=== PATIENT | male | born 1940 | race Caucasian/White ===

== ENCOUNTER → 2018-02-10 13:30 | Outpatient (CLI) | payer MEDICARE, OTHER, SELFPAY ==
--- NOTE | 2018-02-10 | DI.MRI.S_ITS ---
PROCEDURE: MR LUMBAR SPINE WO CON INDICATIONS: SPINAL STENOSIS OF LUMBAR REGION TECHNIQUE: Noncontrast sagittal T1 spin echo and T2 fast echo, sagittal STIR, axial T1 and T2 fast spin echo through the lumbar spine. In cases with scoliosis, additional coronal T2 fast spin echo may be performed. COMPARISON: [facility], MR, L-SPINE WITHOUT CONTRAST, 02/04/2015, 11:33. FINDINGS: Image quality: Excellent. Alignment and Curvature: Interval development of grade 1 anterolisthesis of L4 on L5. Trace retrolisthesis of L5 on S1 as before Bone Marrow: Marrow is of normal overall signal. There are Schmorl's nodes present involving the inferior endplate of L2 and the superior endplate of L3 which are new since the prior study. There is associated marrow edema. Additional small Schmorl's node involving superior endplate of L4 with minimal associated marrow edema No acute vertebral body compression fractures. Spinal Cord: Conus medullaris terminates at the T12-L1 level. Visualized cord demonstrates normal signal and size. Paraspinous Soft Tissues: No paravertebral masses. Presumed bilateral renal cysts although technically indeterminate L1-L2: Mild broad-based posterior disc bulge and bilateral facet disease. Mild central canal narrowing. There is mild bilateral symmetric partial effacement of the lateral recesses. Mild left and no right foraminal stenoses. This is increased on the left. L2-L3: Broad-based posterior disc bulge and bilateral facet disease with ligamentum flavum hypertrophy. There is partial effacement of the lateral recesses, although left greater than right. The descending left L3 nerve root is not well-seen raising the possibility of impingement. This appears progressed since prior study however slightly motion degraded therefore please correlate clinically to exam findings. No right and mild left foraminal narrowing, no interval change L3-L4: Broad-based posterior disc bulge and bilateral facet disease with ligamentum flavum hypertrophy. There is minimal dorsal epidural lipomatosis. Severe central canal narrowing. Near complete effacement of the lateral recesses bilaterally although right greater than left. This level is also motion obscured. Moderate left and mild right foraminal narrowing, grossly unchanged L4-L5: Broad-based posterior disc bulge bilateral facet disease. There is ligamentum flavum hypertrophy. Mild central canal narrowing. Severe right and mild left foraminal stenoses. This appears progressed on the right L5-S1: Posterior annular fissure, broad-based posterior disc bulge and bilateral facet arthropathy. No canal stenosis identified. Mild left and moderate right foraminal narrowing. IMPRESSION: Overall, slight interval progression in multilevel disc degeneration and facet arthropathy as above, in particular progressive narrowing at the left L1-L2 neuroforamen, left L2-L3 subarticular narrowing, right L4-L5 foraminal narrowing and grade 1 anterolisthesis of L4 on L5. Interval development of multilevel Schmorl's nodes. Remainder of the examination unchanged as above. Dictated by: Gerard Givens M.D. on 02/10/2018 at 16:38 Approved by: Gerard Givens M.D. on 02/10/2018 at 16:49
--- NOTE | 2018-02-10 | DI.MRI.S_ITS ---
PROCEDURE: MR THORACIC SPINE WO CON INDICATIONS: SPINAL STENOSIS OF LUMBAR REGION TECHNIQUE: Noncontrast sagittal T1 spine echo and T2 fast spin echo, sagittal STIR, axial T1 and T2 fast spin echo through the thoracic spine. COMPARISON: [facility], US, RENAL COMPLETE, 12/24/2015, 14:54. [facility], CT, ABDOMEN/PELVIS WITH CONTRAST, 11/07/2015, 21:39. FINDINGS: Image quality: Excellent. Alignment and Curvature: There is normal bony alignment. Bone Marrow: Marrow is of normal overall signal. No acute vertebral body compression fractures. Spinal Cord: Visualized spinal cord is normal in size and signal. Paraspinous Soft Tissues: No paravertebral masses. Partially visualized bilateral hydronephrosis versus parapelvic cysts. Miscellaneous: On axial images, central canal and foramina appear widely patent at all scanned levels. IMPRESSION: No canal or foraminal stenosis. Prominent bilateral parapelvic cysts versus hydronephrosis. Visually clinically and if necessary, dedicated renal ultrasound could be performed for further evaluation. Dictated by: Gerard Givens M.D. on 02/10/2018 at 14:59 Approved by: Gerard Givens M.D. on 02/10/2018 at 15:06
== END ==
PROVIDERS: PCP Family Medicine; Visit Provider Family Medicine
DX: M48.061 Spinal stenosis, lumbar region without neurogenic claudication (principal); M51.36 Other intervertebral disc degeneration, lumbar region; M51.37 Other intervertebral disc degeneration, lumbosacral region; M47.816 Spondylosis without myelopathy or radiculopathy, lumbar region; M48.07 Spinal stenosis, lumbosacral region; M47.817 Spondylosis without myelopathy or radiculopathy, lumbosacral region; M51.46 Schmorl's nodes, lumbar region
CPT/HCPCS: 72146; 72148

== ENCOUNTER → 2018-03-16 11:37 | Outpatient (CLI) | payer MEDICARE, OTHER, SELFPAY ==
--- NOTE | 2018-03-16 | DI.RAD.S_ITS ---
PROCEDURE: XR SHOULDER RT MIN 2V INDICATIONS: CHRONIC RT SHOULDER PAIN TECHNIQUE: 3 views of the shoulder were acquired. COMPARISON: [facility], CR, XR HUMERUS RT 2V, 03/16/2018, 11:48. FINDINGS: Bones: No fractures or dislocations. No suspicious bony lesions. Visualized ribs appear intact. There is question of a small Hill-Sachs fracture deformity, although this is probably artifact related to difficulty with patient positioning given the appearance of prior study dated 03/16/18. Moderate glenohumeral and acromioclavicular joint degeneration. Soft tissues: No suspicious soft tissue calcifications. IMPRESSION: Moderate right shoulder degeneration. Dictated by: Gerard Givens M.D. on 03/16/2018 at 12:46 Approved by: Gerard Givens M.D. on 03/16/2018 at 12:49
--- NOTE | 2018-03-16 | DI.US.S_ITS ---
PROCEDURE: US RENAL COMPLETE INDICATIONS: PARAPELVIC RENAL CYST VS HYDRONEPHROSIS TECHNIQUE: Real-time scanning was performed of the kidneys and bladder, with image documentation. COMPARISON: [facility], US, RENAL COMPLETE, 12/24/2015, 14:54. [facility], CT, ABDOMEN/PELVIS WITH CONTRAST, 11/07/2015, 21:39. FINDINGS: Kidneys: Kidneys are normal in size. Right kidney measures 12.0 cm long; left kidney measures 13.4 cm long. Right renal cortical thickness is 1.6 cm; left renal cortical thickness is 1.8 cm. Renal cortical echotexture is normal. Moderate bilateral hydronephrosis. 2 cysts are seen involving the right kidney largest measuring 3.1 x 2.9 x 2.6 cm. Bladder: Pre-void bladder volume is 195 mL. Post-void residual is 22 mL. Pre-void images demonstrate no intraluminal masses or stones. On pre-void images, bilateral ureteral jets are noted with color Doppler interrogation. (Of note, ureteral jets may not be detectable in up to 25% of cases due to insufficient differences in specific gravity between ureteral and bladder urine). Miscellaneous: No free pelvic fluid. IMPRESSION: 1. Moderate bilateral hydronephrosis and there are multiple left renal cysts largest measuring 3.1 cm. Dictated by: Ti LUCAS Interpreted: Cristal Willett MD on 03/16/2018 at 13:12 Approved by: Cristal Willett M.D. on 03/16/2018 at 15:39
--- NOTE | 2018-03-16 | DI.RAD.S_ITS ---
PROCEDURE: XR HUMERUS RT 2V INDICATIONS: CHRONIC RT SHOULDER PAIN TECHNIQUE: 2 views of the humerus were acquired. COMPARISON: None. FINDINGS: Bones: No fractures or dislocations. No suspicious bony lesions. Soft tissues: No suspicious soft tissue calcifications. Possible right shoulder calcific tendinitis. There is moderate right shoulder joint degeneration IMPRESSION: Unremarkable appearance of the humerus. Right shoulder joint degeneration and possible scant calcific tendinitis Dictated by: Gerard Givens M.D. on 03/16/2018 at 14:03 Approved by: Gerard Givens M.D. on 03/16/2018 at 14:04
== END ==
PROVIDERS: PCP Family Medicine; Visit Provider Family Medicine
DX: C44.622 Squamous cell carcinoma of skin of right upper limb, including shoulder (principal); M25.511 Pain in right shoulder; M19.011 Primary osteoarthritis, right shoulder; G89.29 Other chronic pain; N13.30 Unspecified hydronephrosis; N28.1 Cyst of kidney, acquired
CPT/HCPCS: 73030; 73060; 76770

== ENCOUNTER 2018-03-28 10:51 | Emergency (ER) | payer MEDICARE, OTHER, SELFPAY ==
[2018-03-28 11:30] VITALS: BP 135/78; PULSE 78; RESP 16; TEMP 36.5; O2SAT 98; BMI 27.3
== END 2018-03-28 12:25 | disposition left against medical advice (07) ==
LOC: ED 10:52
PROVIDERS: PCP Family Medicine
DX: S80.12XA Contusion of left lower leg, initial encounter (principal)
CPT/HCPCS: 99281; 99282

== ENCOUNTER → 2020-12-23 14:32 | Outpatient (CLI) | payer MEDICARE, OTHER, SELFPAY ==
[2020-12-23 20:13] LABS: Add Manual Diff / Slide Review NO; Basophils Absolute Auto 100 /uL (0-100); Basophils Percent Auto 0.8 % (0-2); Eosinophils Absolute Auto 100 /uL (0-450); Eosinophils Percent Auto 1.6 % (2-4); Lymphocytes Absolute Auto 1900 /uL (1100-4500); Lymphocytes Percent Auto 22.3 % (25-40); Mean Corpuscular HGB Conc 32.7 % (30-36); Mean Corpuscular Volume 94.8 fL (80-100); Monocytes Absolute Auto 700 /uL (0-900); Monocytes Percent Auto 8.6 % (3-14); Neutrophils Absolute Auto 5600 /uL (1500-7000); Neutrophils Percent Auto 66.7 % (50-75); Platelet Count 275 X10^3/uL (150-400); Red Blood Cell Count 5.17 X10^6/uL (4.5-5.9); Red Cell Distribution Width 13.3 % (11.6-14.8); White Blood Cell Count 8.4 X10^3/uL (4.5-11.0)
[2020-12-23 20:18] LABS: Alanine Aminotransferase 21 IU/L (<50); Albumin Globulin Ratio 1.3 (1.0-2.8); Alkaline Phosphatase 66 U/L (38-126); Aspartate Aminotransferase 27 IU/L (17-59); BUN Creatinine Ratio 24.1 (6-22); Bilirubin Total 2.3 mg/dL (0.2-1.3); Blood Urea Nitrogen 20 mg/dL (9-20); Calcium 9.2 mg/dL (8.4-10.2); Carbon Dioxide 26 mmol/L (22-32); Chloride 105 mmol/L (98-107); Cholesterol 164 mg/dL (140-199); Estimated Glomerular Filt Rate > 60.0 mL/min (>60); Glucose 100 mg/dL (80-110); HDL Cholesterol 73 mg/dL (40-60); HEMOLYSIS < 15 (0-50); LDL Cholesterol Calculated 79 mg/dL (<100); Potassium 4.6 mmol/L (3.4-5.1); Sodium 138 mmol/L (137-145); Triglycerides 58 mg/dL (35-150)
== END ==
PROVIDERS: PCP Family Medicine; Visit Provider Family Medicine
DX: I10 Essential (primary) hypertension (principal); E78.5 Hyperlipidemia, unspecified
CPT/HCPCS: 80053; 80061; 85025

== ENCOUNTER → 2021-10-16 10:13 | Outpatient (CLI) | payer MEDICARE, OTHER, SELFPAY ==
[2021-10-16 18:52] LABS: Add Manual Diff / Slide Review NO; Basophils Absolute Auto 0 /uL (0-100); Basophils Percent Auto 0.9 % (0-2); Eosinophils Absolute Auto 100 /uL (0-450); Eosinophils Percent Auto 2.3 % (2-4); Hematocrit 44.4 % (41-53); Hemoglobin 15.1 g/dL (13.5-17.5); Lymphocytes Absolute Auto 1600 /uL (1100-4500); Lymphocytes Percent Auto 29.1 % (25-40); Mean Corpuscular Hemoglobin 31.9 PG (26-34); Mean Corpuscular Volume 93.8 fL (80-100); Monocytes Absolute Auto 600 /uL (0-900); Monocytes Percent Auto 10.4 % (3-14); Neutrophils Absolute Auto 3100 /uL (1500-7000); Neutrophils Percent Auto 57.3 % (50-75); Platelet Count 260 X10^3/uL (150-400); Red Blood Cell Count 4.74 X10^6/uL (4.5-5.9); Red Cell Distribution Width 12.8 % (11.6-14.8); White Blood Cell Count 5.4 X10^3/uL (4.5-11.0)
[2021-10-16 18:56] LABS: Alanine Aminotransferase 19 IU/L (<50); Albumin 3.8 g/dL (3.5-5.0); Albumin Globulin Ratio 1.3 (1.0-2.8); Alkaline Phosphatase 66 U/L (38-126); Aspartate Aminotransferase 31 IU/L (17-59); BUN Creatinine Ratio 21.8 (6-22); Blood Urea Nitrogen 19 mg/dL (9-20); Calcium 8.8 mg/dL (8.4-10.2); Carbon Dioxide 27 mmol/L (22-32); Chloride 101 mmol/L (98-107); Cholesterol 153 mg/dL (140-199); Estimated Glomerular Filt Rate > 60 mL/min (>60); Globulin 2.9 g/dL (1.7-4.1); Glucose 98 mg/dL (80-110); HDL Cholesterol 64 mg/dL (40-60); HEMOLYSIS 26 (0-50); LDL Cholesterol Calculated 78 mg/dL (<100); Potassium 4.5 mmol/L (3.4-5.1); Sodium 134 mmol/L (137-145); Total Protein 6.7 g/dL (6.3-8.2); Triglycerides 55 mg/dL (35-150)
[2021-10-16 19:27] LABS: Prostate Specific Antigen Scrn 1.19 ng/mL (0.1-4.0)
[2021-10-16 19:40] LABS: TSH w/ Reflex to FT4 1.32 uIU/mL (0.47-4.68)
[2021-10-16 19:46] LABS: Vitamin B12 380 pg/mL (239-931)
== END ==
PROVIDERS: PCP Family Medicine; Visit Provider Family Medicine
DX: E78.5 Hyperlipidemia, unspecified (principal); Z12.5 Encounter for screening for malignant neoplasm of prostate; K57.90 Diverticulosis of intestine, part unspecified, without perforation or abscess without bleeding; H93.19 Tinnitus, unspecified ear; I10 Essential (primary) hypertension; K59.00 Constipation, unspecified; N40.1 Benign prostatic hyperplasia with lower urinary tract symptoms; R35.0 Frequency of micturition; R35.1 Nocturia; R42 Dizziness and giddiness; R53.83 Other fatigue; R63.4 Abnormal weight loss
CPT/HCPCS: 80053; 80061; 82607; 84443; 85025; G0103

== ENCOUNTER → 2021-11-25 11:57 | Outpatient (CLI) | payer MEDICARE, OTHER, SELFPAY ==
[2021-11-25 21:18] LABS: D Dimer 393 ng/mL (<230)
== END ==
PROVIDERS: PCP Family Medicine; Visit Provider Family Medicine
DX: M79.89 Other specified soft tissue disorders (principal)
CPT/HCPCS: 85379

== ENCOUNTER → 2021-11-28 12:59 | Outpatient (CLI) | payer MEDICARE, OTHER, SELFPAY ==
--- NOTE | 2021-11-28 13:01 | DI.US.S_ITS ---
PROCEDURE: US PERIPH VENOUS LOW EXTREM LT INDICATIONS: Asymmetric left-sided calf swelling with positive D-dimer TECHNIQUE: Real-time imaging, as well as color and pulse Doppler interrogation, were performed of the lower extremity deep veins from the inguinal ligament to the popliteal fossa. COMPARISON: None. FINDINGS: The common femoral, femoral and popliteal veins are normally compressible, and free of intraluminal thrombus. Color and pulse Doppler demonstrate normal phasic intraluminal flow. There is normal augmentation response to distal compression maneuver. IMPRESSION: Negative for deep venous thrombosis. Dictated by: Jeff Arias M.D. on 11/28/2021 at 12:29 Approved by: Jeff Arias M.D. on 11/28/2021 at 12:30
== END ==
PROVIDERS: PCP Family Medicine; Referring Provider Family Medicine; Visit Provider Family Medicine
DX: M79.89 Other specified soft tissue disorders (principal); R79.1 Abnormal coagulation profile
CPT/HCPCS: 93971

== ENCOUNTER → 2022-08-28 15:12 | Outpatient (CLI) | payer MEDICARE, OTHER, SELFPAY ==
--- NOTE | 2022-08-28 15:14 | DI.MRI.S_ITS ---
PROCEDURE: MR LUMBAR SPINE WO CON INDICATIONS: Pre-Operative TECHNIQUE: Noncontrast sagittal T1 spin echo and T2 fast echo, sagittal STIR, and T2 fast spin echo through the lumbar spine. In cases with scoliosis, additional coronal T2 fast spin echo may be performed. COMPARISON: [facility], MR, MR LUMBAR SPINE WO CON, 02/10/2018, 14:28. FINDINGS: Image quality: Excellent. Alignment and Curvature: Trace L4 on L5 anterolisthesis is present, slightly increased in extent when compared with the MRI dated February 10, 2018. Bone Marrow: There is multilevel reactive endplate changes most severe at L3-4 which demonstrate Modic type I changes. This is markedly increased in extent when compared with the study from February 10, 2018. Spinal Cord: Conus medullaris terminates at the L1 level. Visualized cord demonstrates normal signal and size. Paraspinous Soft Tissues: No paravertebral masses. There are multiple T2 hyperintense cysts within the renal pelves suggesting the presence of bilateral pararenal cysts. T12-L1: No canal stenosis. No foraminal stenosis. L1-L2: Mild disc desiccation and height loss. Broad-based disc bulge. Moderate facet ligamentum flavum hypertrophy. No canal stenosis. Mild right and moderate left foraminal stenosis. L2-L3: Moderate disc desiccation and height loss. Vacuum disc phenomenon. Large broad-based disc bulge. Severe facet and ligamentum flavum hypertrophy. Mild canal stenosis. Mild bilateral neural foraminal stenosis. L3-L4: Severe disc desiccation and height loss. Broad-based disc bulge. Severe facet and ligamentum flavum hypertrophy. Severe canal stenosis. This has increased in severity when compared with the 2018 study. Moderate to severe bilateral foraminal narrowing increased from the prior study. L4-L5: Severe disc desiccation and height loss. Trace anterolisthesis. Severe facet and ligamentum flavum hypertrophy. No canal stenosis. Moderate right and mild left foraminal stenosis. These findings are unchanged. L5-S1: Severe disc desiccation and height loss. Broad-based disc bulge. Mild facet sclerosis. Mild bilateral foraminal stenosis. No canal stenosis. IMPRESSION: 1. Marked increase in reactive endplate changes and degenerative disc disease throughout the lumbar spine when compared with the study dated February 10, 2018. 2. Multilevel broad-based disc bulges and facet and ligamentum flavum hypertrophy with resultant mild canal stenosis at L2-3 and severe canal stenosis at L3-4 which is increased from the prior study. 3. Moderate left foraminal stenosis at L1-2, moderate right foraminal stenosis at L4-5, and moderate to severe bilateral foraminal stenosis at L3-4 which is increased in extent from the prior study. Dictated by: Maria Elena Silverman M.D. on 08/28/2022 at 16:42 Approved by: Maria Elena Silverman M.D. on 08/28/2022 at 16:47
== END ==
PROVIDERS: PCP Family Medicine; Referring Provider Family Medicine; Visit Provider Family Medicine
DX: M48.061 Spinal stenosis, lumbar region without neurogenic claudication (principal); M51.36 Other intervertebral disc degeneration, lumbar region
CPT/HCPCS: 72148

== ENCOUNTER → 2022-12-24 10:45 | Outpatient (CLI) | payer MEDICARE, OTHER, SELFPAY ==
--- NOTE | 2022-12-24 | DI.MRI.S_ITS ---
PROCEDURE: MR LUMBAR SPINE WO CON INDICATIONS: Spinal stenosis, lumbar region TECHNIQUE: Noncontrast sagittal T1 spin echo and T2 fast echo, sagittal STIR, and T2 fast spin echo through the lumbar spine. In cases with scoliosis, additional coronal T2 fast spin echo may be performed. COMPARISON: [facility], MR, MR LUMBAR SPINE WO CON, 08/28/2022, 15:17. FINDINGS: Image quality: Excellent. Alignment and Curvature: Grade 1 anterior spondylolisthesis at L4-5 Bone Marrow: Modic type 1 edematous endplate changes noted at L3-4. Additional multilevel chronic endplate changes noted throughout the lumbar spine Spinal Cord: Conus medullaris terminates at the L1 level. Visualized cord demonstrates normal signal and size. Paraspinous Soft Tissues: Bilateral renal peripelvic cysts noted. Evidence of prior laminotomy at L3-4 noted in the posterior paraspinal soft tissues. No instrumentation. T12-L1: Normal appearance. L1-L2: Disc space narrowing and posterior disc bulge present without central stenosis. Moderate left and mild right foraminal stenosis L2-L3: Disc space narrowing and circumferential disc bulge with hypertrophic facet joints results in mild central stenosis. Severe left and mild right foraminal stenosis L3-L4: Disc space narrowing and circumferential disc bulge with hypertrophic facet joints results in mild central stenosis, much improved from the prior. Moderate bilateral foraminal stenosis. L4-L5: Disc space narrowing with grade 1 anterior spondylolisthesis hypertrophic facet joints and disc bulge results in [id number] central stenosis. Mild bilateral foraminal stenosis L5-S1: Disc space narrowing with circumferential disc bulge and hypertrophic facet joints. Moderate bilateral foraminal stenosis IMPRESSION: No evidence of surgical complication status post L3-4 laminotomies. Mid L3-4 mild residual central stenosis is much improved from the prior. Multilevel degenerative disc disease and arthropathy results in stable multilevel foraminal stenosis as above Approved by: Noe Enriquez M.D. on 12/24/2022 at 17:39
[2022-12-24 11:43] LABS: Alanine Aminotransferase 18 IU/L (<50); Albumin 3.8 g/dL (3.5-5.0); Albumin Globulin Ratio 1.2 (1.0-2.8); Alkaline Phosphatase 73 U/L (38-126); Aspartate Aminotransferase 23 IU/L (17-59); BUN Creatinine Ratio 28.6 (6-22); Bilirubin Total 1.3 mg/dL (0.2-1.3); Blood Urea Nitrogen 24 mg/dL (9-20); Calcium 8.9 mg/dL (8.4-10.2); Carbon Dioxide 26 mmol/L (22-32); Chloride 107 mmol/L (98-107); Estimated Glomerular Filt Rate > 60 mL/min (>60); Globulin 3.1 g/dL (1.7-4.1); Glucose 83 mg/dL (80-110); HEMOLYSIS < 15 (0-50); Potassium 4.7 mmol/L (3.4-5.1); Sodium 138 mmol/L (137-145); Total Protein 6.9 g/dL (6.3-8.2)
== END ==
PROVIDERS: PCP Family Medicine; Referring Provider Nurse Practitioner; Visit Provider Nurse Practitioner
DX: M48.062 Spinal stenosis, lumbar region with neurogenic claudication (principal); M48.07 Spinal stenosis, lumbosacral region; M51.36 Other intervertebral disc degeneration, lumbar region; M51.37 Other intervertebral disc degeneration, lumbosacral region; M47.816 Spondylosis without myelopathy or radiculopathy, lumbar region; M47.817 Spondylosis without myelopathy or radiculopathy, lumbosacral region; I10 Essential (primary) hypertension; R17 Unspecified jaundice
CPT/HCPCS: 36415; 72148; 80053

== ENCOUNTER → 2024-03-02 09:55 | Outpatient (CLI) | payer MEDICARE, OTHER, SELFPAY ==
[2024-03-02 19:33] LABS: Add Manual Diff / Slide Review NO; Basophils Absolute Auto 0 /uL (0-100); Basophils Percent Auto 0.7 % (0-2); Eosinophils Absolute Auto 200 /uL (0-450); Eosinophils Percent Auto 2.4 % (2-4); Hematocrit 44.6 % (41-53); Hemoglobin 14.4 g/dL (13.5-17.5); Lymphocytes Absolute Auto 2100 /uL (1100-4500); Lymphocytes Percent Auto 31.7 % (25-40); Mean Corpuscular HGB Conc 32.3 % (30-36); Mean Corpuscular Hemoglobin 27.9 PG (26-34); Mean Corpuscular Volume 86.3 fL (80-100); Monocytes Absolute Auto 600 /uL (0-900); Monocytes Percent Auto 9.3 % (3-14); Neutrophils Absolute Auto 3600 /uL (1500-7000); Neutrophils Percent Auto 55.9 % (50-75); Platelet Count 273 X10^3/uL (150-400); Red Blood Cell Count 5.17 X10^6/uL (4.5-5.9); Red Cell Distribution Width 16.1 % (11.6-14.8); White Blood Cell Count 6.5 X10^3/uL (4.5-11.0)
[2024-03-02 19:48] LABS: BUN Creatinine Ratio 21.6 (6-22); Blood Urea Nitrogen 21 mg/dL (9-20); Calcium 9.5 mg/dL (8.4-10.2); Carbon Dioxide 24 mmol/L (22-32); Chloride 105 mmol/L (98-107); Cholesterol 143 mg/dL (140-199); Estimated Glomerular Filt Rate > 60 mL/min (>60); Glucose 104 mg/dL (80-110); HDL Cholesterol 59 mg/dL (40-60); HEMOLYSIS 19 (0-50); LDL Cholesterol Calculated 72 mg/dL (<100); Potassium 4.7 mmol/L (3.4-5.1); Sodium 136 mmol/L (137-145); Triglycerides 59 mg/dL (35-150)
[2024-03-02 20:17] LABS: Prostate Specific Antigen Scrn 0.646 ng/mL (0.1-4.0)
[2024-03-02 20:36] LABS: Vitamin B12 915 pg/mL (239-931)
== END ==
PROVIDERS: PCP Family Medicine; Visit Provider Family Medicine
DX: E87.1 Hypo-osmolality and hyponatremia (principal); E78.5 Hyperlipidemia, unspecified; Z12.5 Encounter for screening for malignant neoplasm of prostate; F41.1 Generalized anxiety disorder; N40.0 Benign prostatic hyperplasia without lower urinary tract symptoms; I10 Essential (primary) hypertension; E53.8 Deficiency of other specified B group vitamins
CPT/HCPCS: 80048; 80061; 82607; 85025; G0103

== ENCOUNTER → 2025-01-10 09:51 | Outpatient (CLI) | payer MEDICARE, OTHER, SELFPAY ==
[2025-01-10 20:21] LABS: Add Manual Diff / Slide Review NO; Hematocrit 44.3 % (41-53); Hemoglobin 14.7 g/dL (13.5-17.5); Lymphocytes Absolute Auto 1600 /uL (1100-4500); Mean Corpuscular HGB Conc 33.2 % (30-36); Mean Corpuscular Hemoglobin 30.7 PG (26-34); Mean Corpuscular Volume 92.5 fL (80-100); Platelet Count 262 X10^3/uL (150-400)
[2025-01-10 20:28] LABS: Blood Urea Nitrogen 21 mg/dL (9-20); Carbon Dioxide 23 mmol/L (22-32); Estimated Glomerular Filt Rate > 60 mL/min (>60); HEMOLYSIS 50 (0-50)
[2025-01-10 20:45] LABS: Calcium 9.3 mg/dL (8.4-10.2); Chloride 103 mmol/L (98-107); Cholesterol 195 mg/dL (140-199); Glucose 94 mg/dL (70-99); HDL Cholesterol 68 mg/dL (40-60); Potassium 4.5 mmol/L (3.4-5.1); Sodium 136 mmol/L (137-145); Triglycerides 72 mg/dL (35-150)
== END ==
PROVIDERS: PCP Family Medicine; Visit Provider Family Medicine
DX: Z12.5 Encounter for screening for malignant neoplasm of prostate (principal); E78.5 Hyperlipidemia, unspecified; N40.1 Benign prostatic hyperplasia with lower urinary tract symptoms; R35.1 Nocturia; I10 Essential (primary) hypertension; E87.1 Hypo-osmolality and hyponatremia
CPT/HCPCS: 80048; 80061; 85025; G0103

== ENCOUNTER → 2025-01-30 14:38 | Outpatient (CLI) | payer MEDICARE, OTHER, SELFPAY | PROVIDERS: PCP Family Medicine; Visit Provider Physician Assistant | DX: S41.102A Unspecified open wound of left upper arm, initial encounter (principal) | CPT/HCPCS: 87070; 87075; 87077; 87186; 87205 ==